=== PATIENT | female | born 1935 | race Caucasian/White ===

== ENCOUNTER → 2019-10-24 | Outpatient (CLI) | payer OTHER | END | disposition home or self-care (01) | LOC: MAMO-SONO 09:45 → SONOGRAMA 10:08 | DX: M25.511 Pain in right shoulder (principal) ==

== ENCOUNTER 2019-12-20 08:22 | Outpatient (CLI) | payer OTHER | END 2019-12-20 08:27 | disposition home or self-care (01) | LOC: RX STUDY 08:22 | DX: R13.19 Other dysphagia (principal) ==